=== PATIENT | female | born 1975 | race Caucasian/White ===

== ENCOUNTER 2025-03-25 12:09 | Emergency (ER) | payer MEDICARE, SELFPAY ==
[2025-03-25 12:11] VITALS: BP 123/72
[2025-03-25 12:42] VITALS: BMI 31.9
--- NOTE | 2025-03-25 12:57 | ED.GENMED ---
History of Present Illness
General
Chief Complaint: Skin Surface Trauma
Source: patient
Exam Limitations: none
Time Seen by Provider: 03/25/25 12:39
Nursing documentation reviewed up to this point in time: agreed with
History of Present Illness
History of Present Illness:
49-year-old female with history as noted presents to the ER for evaluation of left hand swelling, redness, pain. Patient reports that she sustained minor abrasion/laceration to the dorsum of the left hand 3 days ago�she says that she closed a glass
shower door somewhat forcefully and the door shattered and she was struck on the dorsum of the hand with broken glass. She says that she sustained some minor abrasions/lacerations on the dorsum of the hand, cleaned them and did not notice any glass
in the wounds. She did not seek care at that time. She says over the past few days since the injury she has had increased redness, pain, swelling in the hand and ultimately came to the ER for assessment. She denies any fever or chills or any
other acute complaints. Unsure of her last tetanus shot.
Past History
Past History
ED Past Medical History: None, Hypothyroidism and Psychiatric
ED Past Surgical History: None
Social History
Tobacco: Smoker
Alcohol: None
Drug: Former user
Personal:
Living: with family
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
Family History
Family History: Negative CAD
Review of Systems
Review of Systems
All Other Systems: ROS reviewed and negative except as documented in HPI and ROS
Constitutional: Denies fever or chills
Musculoskeletal: Reports other (Redness, pain, swelling left hand)
Skin: Reports other (Lacerations/abrasions)
Phy Exam
Physical Exam
Physical Exam:
General: Awake, alert; no acute distress
Head: Normocephalic, atraumatic
Eyes: Conjunctiva normal
Throat: Airway intact, handling secretions
Neck: Trachea midline
Lungs: Clear to auscultation bilaterally, no wheezing, rales, rhonchi
Heart: Regular rate and rhythm, no murmurs, gallops, or rubs
Abd: Soft, non distended, nontender
Neuro: Grossly intact
Skin: On exam of the left hand patient has small laceration on the dorsal aspect of the proximal second digit as well as a small laceration over the left third MCP joint on the dorsum�there is some drainage from laceration over the third MCP joint;
there is significant confluent erythema across the entire dorsum of the hand extending up the fingers and patient has streaking redness up the forearm
Extremities: Skin findings as above, she does have edema in the left hand and distal forearm; she has a strong left radial pulse
Scores
Heart Failure Risk
Heart Failure Risk Score: Not Applicable
Heart Score for Chest Pain Patients
STEMI patient?: Not applicable
Withdrawal Assessment of Alcohol
Withdrawal Assessment Completed?: Not applicable
Course
Orders/Labs/Results
Orders:
Orders
03/25/25 12:51
Tetanus/Diphth/Acelpertussis [Adacel] 0.5 ml IM .ONCE ONE
CR Hand - Left Min 3 Views Urgent
Comment:
Reason For Exam: left hand laceration, infection, eval for FB
03/25/25 12:52
CeFAZolin 2 GRAM [Ancef] 2 grams in 10 ml IV NOW
03/25/25 13:03
Complete Blood Count/With Diff Urgent
Comprehensive Metabolic Panel Urgent
03/25/25 15:11
ORTHOPEDIC CONSULT Urgent
Consulting Provider: Jerry Robin
Was physician already notified: Yes
03/25/25 16:29
HYDROmorphone [Dilaudid] 0.5 mg IV NOW STA
03/25/25 16:30
PRN Pain Medication Management As Directed
May give lesser potent ordered pain med per pt: Yes
preference::
Protocol:: Medication orders for pain may be administered in a
manner that supports deferring to patient preference
when the pt is:
- Requesting an ordered lesser potent pain medication.
Least to most potent pain medications are defined
as: acetaminophen < NSAID < tramadol < opioids
(morphine, oxycodone, hydromorphone).
- Requesting a lesser dose of the same medication IF
ORDERED.
- Requesting a less intrusive route of administration
if both routes are prescribed by the provider (PO <
IV).
03/25/25 16:31
Code Status As Directed
Resuscitation Status: Full Code
03/25/25 16:43
Ondansetron Injectable [Zofran] 4 mg IV NOW STA
Abnormal Lab Results
03/25/25
13:03
WBC 20.1 H 10^3/uL
(4.8-10.8)
MCH 31.1 H pg
(27.0-31.0)
Abs Immat Gran (auto) 0.2 H 10^3/uL
(0-0.05)
Absolute Neuts (auto) 16.2 H 10^3/uL
(1.4-6.5)
Absolute Monos (auto) 1.3 H 10^3/uL
(0.1-0.6)
Immature Gran % 1.0 H %
(0-0.5)
Neutrophils % 80.3 H %
(42.2-75.2)
Lymphocytes % 11.8 L %
(20.5-51.1)
03/25/25 13:03
03/25/25 13:03
Vital Signs
Initial and Last Documented VS:
Initial Vital Signs
Temp Pulse Resp BP Pulse Ox
37.4 C 82 18 123/72 100
03/25/25 12:11 08/26/25 12:11 03/25/25 12:11 03/25/25 12:11 03/25/25 12:11
Last Documented Vital Signs
Temp Pulse Resp BP Pulse Ox
37.4 C 76 18 127/67 98
03/25/25 12:11 03/25/25 16:24 03/25/25 16:24 03/25/25 16:24 03/25/25 16:24
MDM/Problems Addressed
Differential Diagnosis Includes:
Cellulitis with lymphangitis�must consider retained foreign body, fracture
MDM/Problems Addressed:
49-year-old female presents with swelling, pain, redness on the left hand developing over the past few days since sustaining a minor laceration on broken glass. Vitals and exam as above�clearly she has infection/cellulitis. Will check x-ray of the
hand. Update tetanus. Send basic labs and treat with antibiotics. Reassess after the above.
Labs reviewed she does have leukocytosis of 20.1. Chemistry no clinically significant abnormalities. X-ray of the hand shows no clear radiopaque foreign body. Case discussed with general orthopedist, will likely need surgical exploration and I&D;
will need to speak with hand surgery. Case discussed with hospitalist for admission.
Spoke with hand surgery about this patient�unfortunately they are not available in the hospital this week to manage in the OR. I called our other orthopedic group and unfortunately there hand surgeon is also unavailable this week. Transfer was
recommended given lack of hand surgery availability. I had a long discussion with the patient and I explained to her that this infection will likely require she go to the operating room. I explained the recommendation of the surgeons that she be
transferred to a facility with hand surgery on-call. She initially was very hesitant to transfer specifically downtown to [facility], after discussion was more agreeable to transfer to [facility] given closer proximity. Will transfer to
[facility] as recommended by specialist. Updated hospitalist.
Discussed with [facility] as well as [facility] transfer center send unfortunately no hand surgery available�[facility] reports surgeon is on vacation and [facility] said patient would need transfer to [facility] for coverage by hand. I had a
long discussion with the patient and she was agreeable to go down to [facility] given the lack of more local availability and so I discussed the case with the transfer center at [facility]. Patient was accepted for transfer ER to ER by Dr. Holloway after
discussion with hand surgeon Dr. Carrillo. Monitor pending transport.
*Radiology
Radiology exam reviewed: preliminary read by ED provider and radiology read reviewed
*Pulse Oximetry
SaO2: 100
Oxygen Mode of Delivery: Room air
Patient hypoxic: no (100%)
*Critical Care Note
Total Time (30-74mins, 75-104mins- exclusive of procedures): Not Applicable
Data Reviewed
Source: patient
Patient Management
Discussion with other providers: Hospitalist (Discussed with hospitalist) and [employer] (Discussed with orthopedist)
Escalation/DeEscalation of care consider admission/obs:
Admission indicated--transfer recommended as above
ED Attending Note
-
Portions of this chart may have been created with voice recognition software.� Occasional wrong word or��sound alike� substitutions may have occurred due to the inherent limitations of voice recognition software.
Discharge Plan
Departure
Patient Disposition: Acute Care Hospital
Date of Disposition: 03/25/25
Time of Disposition: 15:09
Discharge Problem:
Cellulitis of hand
Hospital Transfer
Other hospital: [facility]
I certify that the patient requires transfer: Yes
Discussed case with accepting physician: Dr. Holloway/Lorena
Reason for transfer: specialties available
Interventions
Interventions:
*Risk Screen - Suicide Last Done: 03/25/25 12:11
*General Assessment Last Done: 03/25/25 12:47
*Neglect/Abuse Screening Last Done: 03/25/25 12:47
*ED- Fall Risk Assessment Last Done: 03/25/25 12:47
*ED COVID-19 Vaccine History Last Done: 03/25/25 12:47
ED-Skin Assessment Last Done: 03/25/25 12:42
[2025-03-25 13:26] LABS: Hematocrit 41.4 % (37.0-47.0); Hemoglobin 14.6 g/dL (12.0-16.0); Mean Corp Hgb Conc. 35.3 g/dL (33.0-37.0); Mean Corpuscular Volume 88.3 fL (81.0-99.0); Nucleated Red Blood Cells % 0 %; Platelet Count 309 10^3/uL (130-400); Red Cell Dist. Width 12.3 % (11.5-14.5)
[2025-03-25 13:30] VITALS: BP 118/75
[2025-03-25] MEDS: ADACEL 0.5 ML IM (13:30)
[2025-03-25] MEDS: ANCEF 10 IV (13:31)
[2025-03-25 13:33] LABS: ALT (SGPT) 21 U/L (0-35); AST (SGOT) 16 U/L (14-36); Albumin 3.9 g/dl (3.5-5.0); Alkaline Phosphatase 87 U/L (38-126); Blood Urea Nitrogen 12 mg/dl (7-17); Calcium 9.1 mg/dl (8.4-10.2); Carbon Dioxide 26 mmol/L (22-30); Chloride 104 mmol/L (98-107); Estimated Creatinine Clearance 81 ml/min; Glucose 92 mg/dl (70-99); Potassium 4.0 mmol/L (3.5-5.1); Sodium 136 mmol/L (135-145); Total Protein 6.7 g/dl (6.3-8.2); eGFR > 60.00
--- NOTE | 2025-03-25 16:04 | HPS.HSE ---
Addendum entered and electronically signed by Tahira Urena MD 03/25/25 19:31:
This is an addendum to the H&P written by Naheed Conrad. �Patient seen and examined independently with resident.
49-year-old female past medical history of ADHD presenting with left hand swelling, redness and pain 3 days ago. �She closed the shower door and it shattered glass pieces into her hand and she fell onto the floor onto her left arm. �She has been
using Neosporin since. �No fevers or chills.
Vital signs normal.
Labs show leukocytosis of 20. �Labs otherwise unremarkable.
Hand x-ray shows no radiopaque foreign bodies.
She was given Tdap. �Started on cefazolin.
Patient with cellulitis of the left hand secondary to injury of shower door glass shards.
Cefazolin. �Orthopedics consulted due to concern for glass fragments embedded in soft tissues. Hand surgeon not available so patient transferred to [facility].�
Original Note:
Family Physician
-
Family Physician: NOT KNOW UNKNOWN - PT DOES
Chief Complaint
-
Left Hand Cellulitis
History of Present Illness
49 year old female with no significant PMH who presents with worsening left hand pain, redness and swelling after she slammed a bathroom door on her left hand 3 days ago. Right after impact, she slipped and fell to the floor onto her left arm with
no head impact or loss of consciousness. Impact of door on her left hand caused glass to shatter and she sustained minor lacerations to left hand. She picked out multiple small shards of glass from her wounds, cleaned them and has continued to apply
neosporin to the wounds. Unfortunately, symptoms have continued to worsen and 9/10 pain is uncontrolled with tylenol.
Reports restricted ROM of left hand, generalized weakness, reduced PO intake, nausea and headache. Denies fever/chills, recent instrumentation/procedures of left hand, IV drug use, left arm pain or shoulder/elbow ROM restriction.
Medical History
Past Medical History
Past Medical History: Reports Other (ADHD)
Past Surgical History: Reports None
Social History
Tobacco: Smoker
Alcohol: None
Drug: None
Living: Other (at home)
Family History
Family History: Not pertinent
Allergies / Home Medications
Allergies reflects when Allergies were last updated in [facility].
Home Medications with original date entered in [facility]
Allergy/Medication List:
Allergies
Allergy/AdvReac Type Severity Reaction Status Date / Time
No Known Allergies Allergy Verified 03/25/25 12:11
Home Medications
Med For Adhd 1 tab PO DAILY 03/25/25
Review of Systems
-
History Source: Patient
Constitutional: Reports Fatigue; Denies Fever, Night Sweats or Chills
Respiratory: Denies Trouble Breathing
Cardiac: Denies Chest Pain, Diaphoresis or Palpitations
Abdomen/GI: Reports Nausea
Musculoskeletal: Reports Joint Pain (left hand pain, swelling, restricted ROM)
Skin: Reports Other (redness, warmth, swelling)
Neurological: Reports Headache
Physical Exam
Vital Signs
Vital Signs
Temp Pulse Resp BP Pulse Ox
99.3 F 78 16 118/75 100
03/25/25 12:11 03/25/25 13:30 03/25/25 13:30 03/25/25 13:30 03/25/25 13:02
Physical Exam
General: Well Developed, Well Nourished, No Apparent Distress and Pain (left hand/wrist)
HEENT: NormoCephalic, Anicteric and Moist mucous membranes
Respiratory: Clear and Non Labored Respirations; No Wheezes, Rales, Rhonchi or Crackles
Cardiac: S1/S2 and Regular Rhythm; No Murmur, Rub, Gallop or Peripheral Edema
GI: Soft, Non Tender, Non Distended and Normal Bowel Sounds
Musculoskeletal: No Clubbing, No Cyanosis and Other (Significant swelling and redness of dorsum of left hand with reduced ROM of left hand and wrist.)
Skin: Other (diffuse swelling of left hand and distal half of forearm. Redness of dorsum and dorsal wrist with streaking redness up forearm. Minor lacs noted on 2nd and 4th digit, across MCP of 3rd digit, and dorsum of wrist. No purulence or
fluctuance)
Neuro: Awake, Alert and Oriented
Hematologic/Lymphatic: No Lymphadenopathy (no axillary lymphadenopathy)
Psych: Calm
Laboratory Results
-
03/25/25 13:03
03/25/25 13:03
Laboratory Results
Total Bilirubin 0.6 mg/dl (0.2-1.3) 03/25/25 13:03
AST 16 U/L (14-36) 03/25/25 13:03
ALT 21 U/L (0-35) 03/25/25 13:03
Alkaline Phosphatase 87 U/L (38-126) 03/25/25 13:03
Impression/Plan
-
IMPRESSION:
49 year old femalw with ADHD who presents with left hand cellulitis with lymphangitis secondary to trauma and reported foreign body extraction (glass) at home.
PLAN:
Cellulitis with lymphangitis:
Streaking redness up forearm. Minor lacerations noted with no purulence.
Concern for foreign body retention given that pt picked out small shards of glass from lac wounds at home.
- Cefazolin 2g, dilaudid 0.5 and zofran given in ED.
- ED physician discussed with ortho for potential open exploration. Unfortunately, no hand surgeon available so appropriate to transfer to different hospital
- Pt agreeable to transfer to [facility].
Code status: Full code
[2025-03-25 16:24] VITALS: BP 127/67
[2025-03-25] MEDS: ZOFRAN 4 MG IV (16:52)
[2025-03-25] MEDS: DILAUDID 0.5 MG IV (16:54)
[2025-03-25 20:04] VITALS: BP 112/64
== END 2025-03-25 20:53 | disposition short-term general hospital (02) ==
LOC: EMR 12:09
PROVIDERS: CONSULT PHYSICIAN Orthopaedic Surgery Hand Surgery; EMERGENCY PHYSICIAN Emergency Medicine
DX: S61.412A Laceration without foreign body of left hand, initial encounter (principal); L03.114 Cellulitis of left upper limb; W25.XXXA Contact with sharp glass, initial encounter; F17.200 Nicotine dependence, unspecified, uncomplicated; Z23 Encounter for immunization
CPT/HCPCS: 96374; 96375; 90471; 99285; 73130; 80053; 85025; 90715

== ENCOUNTER 2025-07-08 16:41 | Emergency (ER) | payer MEDICARE, SELFPAY ==
[2025-07-08 16:44] VITALS: BP 130/89
[2025-07-08 18:11] LABS: COVID-19 Antigen Negative (Negative)
--- NOTE | 2025-07-08 18:13 | ED.GENMED ---
History of Present Illness
General
Chief Complaint: Breathing Problem
Source: patient
Exam Limitations: none
Time Seen by Provider: 07/08/25 16:58
Nursing documentation reviewed up to this point in time: agreed with
History of Present Illness
History of Present Illness:
see MDM
Past History
Past History
ED Past Medical History: None, Hypothyroidism and Psychiatric
ED Past Surgical History: None
Social History
Tobacco: Smoker
Alcohol: None
Drug: Former user
Personal:
Living: with family
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
Family History
Family History: Negative CAD
Review of Systems
Review of Systems
Allergies reviewed?: Yes
All Other Systems: Not applicable
Phy Exam
Physical Exam
Physical Exam:
GENERAL: Alert , in no apparent distress
EYE: pupils equal and reactive
NECK: Supple
ENT: b/l TM s clear, pharynx erythematous but no tonsillar hypertrophy or exudates
CARDIAC: Regular rate and rhythm, no edema
LUNGS: Clear breath sounds bilaterally, no acute respiratory distress, no wheezes/rales/rhonchi, occ cough
ABDOMEN: Soft, without focal tenderness, no r/g, no cvat, normal bowel sounds
NEUROLOGICAL: Alert and oriented, no focal neuro deficits
SKIN: Warm and dry, skin intact.
MUSCULOSKELETAL: No edema, well perfused.
PSYCH: Normal and appropriate interaction.
Scores
Heart Failure Risk
Heart Failure Risk Score: Not Applicable
Course
Orders/Labs/Results
Orders:
Orders
07/08/25 17:12
CR Chest - 2 Views Urgent
Comment:
Reason For Exam: cold sypmtoms
07/08/25 17:28
COVID-19 Antigen Urgent
Source: Nasal Swab
Influenza A+B Rapid Molecular Urgent
STEVIE Source: Nasal Swab
Specimen Description:
Vital Signs
Initial and Last Documented VS:
Initial Vital Signs
Temp Pulse Resp BP Pulse Ox
36.9 C 88 18 130/89 99
07/08/25 16:44 07/08/25 16:44 07/08/25 16:44 07/08/25 16:44 07/08/25 16:44
Last Documented Vital Signs
Temp Pulse Resp BP Pulse Ox
36.9 C 88 18 130/89 99
07/08/25 16:44 07/08/25 16:44 07/08/25 16:44 07/08/25 16:44 07/08/25 18:16
MDM/Problems Addressed
Differential Diagnosis Includes:
see MDM
MDM/Problems Addressed:
Note:
CHIEF COMPLAINT(S)
Nausea, vomiting, shortness of breath.
HISTORY OF PRESENT ILLNESS
The patient is a 49-year-old female who presents with acute onset symptoms starting this morning. She reports feeling nauseous and experienced a single episode of vomiting. She denies having a fever or sore throat but does mention shortness of
breath. The patient also reported brief diarrhea earlier today. She was recently exposed to someone who had COVID-19 at a . She has had no subsequent vomiting and has been able to keep down water since then.
The patient is concerned about potentially being contagious and is inquiring about the need to quarantine. She is unsure if she should attend work and requests a work note. There has been no testing for influenza or COVID-19 yet, and she expresses a
willingness to undergo these tests.
SOCIAL DETERMINANTS AFFECTING HEALTH
The patient smokes cigarettes. She expresses concerns about work environment disbelief regarding illnesses, emphasizing the need for a work note.
IMMUNIZATION HISTORY
The patient reports being vaccinated against COVID-19 but not yet this seasons influenza vaccine.
SOCIAL HISTORY
The patient smokes cigarettes. She did not specify the quantity or duration.
PLAN
1. Conduct influenza and COVID-19 testing.
2. Advise quarantine until test results are available, although the patient should avoid work due to symptoms, even if tests return negative.
3. Provide a work note based on the test results and symptomatology.
4. Educate the patient on symptom management and hydration.
DIFFERENTIAL DIAGNOSIS
The Differential Diagnosis includes, in no particular order and is not limited to:
1. COVID-19
2. Influenza
3. Gastroenteritis
4. Common cold
5. Allergies
6. Acute bronchitis
7. Anxiety or stress-related reactions
8. Pneumonia
9. Asthma exacerbation
10. Other viral infections
49 y/o F
onset of feeling tired today with nausa/vomiting/idarrhea x 1
no sore throat
mild cough/sob
smoker
covid exposure at a
here for testing
well appearing
mild congestion
clear lungs
no pharyngitis
abdomen notneder
afebrile
flu and covid neg
cxr indep reivewed, clinear atelectasis
pt is smoker
will give zpak if pt starts coughing more she can fill
otherwise proably viral
d/c home
*Pulse Oximetry
SaO2: 99
Oxygen Mode of Delivery: Room air
Patient hypoxic: no (99)
*Critical Care Note
Total Time (30-74mins, 75-104mins- exclusive of procedures): Not Applicable
ED Attending Note
-
Portions of this chart may have been created with voice recognition software.� Occasional wrong word or��sound alike� substitutions may have occurred due to the inherent limitations of voice recognition software.
Discharge Plan
Departure
Patient Disposition: Home (Routine Discharge)
Date of Disposition: 07/08/25
Time of Disposition: 18:15
Patient with high blood pressure during this ER visit?: No
Condition: Fair
Covid-19: Not Applicable
Discharge Problem:
Acute viral syndrome
Instructions: Upper respiratory infection in adults - ED (DC)
Prescriptions:
New
azithromycin [Zithromax] 250 mg tablet
See Rx Instructions .ROUTE .COMPLEX 6 Days Qty: 6 0RF
Rx Instructions:
500 mg po day 1 then 250 mg po daily x 4 days
No Action
Med For Adhd
1 tab PO DAILY
Referrals:
NONE,* [Family Provider, Internal Medicine]
Stand Alone Forms: Return to Work
Activity Restrictions/Additional Instructions:
You tested negative for flu and COVID today. Your chest x-ray showed some atelectasis. if you start coughing more, you can take the zithromax, called to your pharmacy but otherwise You likely have a virus. Stay home until your diarrhea or
vomiting is resolved. And give you a work note for 3 days. Return for any concerns
Interventions
Interventions:
*General Assessment Last Done: 07/08/25 16:44
Discharge Date and Time
Print Language: SETSWANA
== END 2025-07-08 18:53 | disposition home or self-care (01) ==
LOC: EMR 16:41
PROVIDERS: Physician Assistant; EMERGENCY PHYSICIAN Emergency Medicine
DX: B34.9 Viral infection, unspecified (principal); F17.210 Nicotine dependence, cigarettes, uncomplicated; Z11.52 Encounter for screening for COVID-19
CPT/HCPCS: 99284; 71046; 87502; 87811